=== PATIENT | female | born 1965 | race Hispanic/Latino ===

== ENCOUNTER → 2024-02-12 12:53 | Outpatient (REF) | payer OTHER, SELFPAY | LOC: HWWDC 12:53 | PROVIDERS: ATTENDING PHYSICIAN Hospitalist | DX: Z12.31 Encounter for screening mammogram for malignant neoplasm of breast (principal) | CPT/HCPCS: 77063; 77067 ==

== ENCOUNTER 2024-03-05 | Emergency (ER) | payer OTHER, SELFPAY ==
[2024-03-05 00:07] VITALS: BP 104/71
[2024-03-05 00:33] VITALS: BP 99/45
[2024-03-05 00:45] VITALS: BMI 32.9
[2024-03-05 00:54] LABS: % Basophils 0.9 % (0-2); % Eosinophils 12.7 % (0-6); % Immature Granulocytes 0.3 % (0-0.5); % Monocytes 13.4 % (1.7-9.3); % Neutrophils 45.7 % (42.2-75.2); Absolute Basophils 0.1 10^3/uL (0-0.2); Absolute Lymphocytes 2.1 10^3/uL (1.2-3.4); Absolute Neutrophils 3.6 10^3/uL (1.4-6.5); Hematocrit 34.9 % (37.0-47.0); Hemoglobin 11.9 g/dL (12.0-16.0); Mean Corp Hgb Conc. 34.1 g/dL (33.0-37.0); Mean Corpuscular Hgb 29.9 pg (27.0-31.0); Mean Corpuscular Volume 87.7 fL (81.0-99.0); Mean Platelet Volume 10.1 fL (7.4-10.4); Nucleated Red Blood Cells % 0 %; Platelet Count 238 10^3/uL (130-400); Red Blood Cell Count 3.98 10^6/uL (4.20-5.40); Red Cell Dist. Width 13.6 % (11.5-14.5); White Blood Cell Count 7.8 10^3/uL (4.8-10.8)
[2024-03-05 01:00] VITALS: BP 97/52
[2024-03-05 01:06] LABS: ALT (SGPT) 49 U/L (0-35); AST (SGOT) 58 U/L (14-36); Albumin 3.7 g/dl (3.5-5.0); Alkaline Phosphatase 193 U/L (38-126); Blood Urea Nitrogen 13 mg/dl (7-17); Carbon Dioxide 29 mmol/L (22-30); Chloride 103 mmol/L (98-107); Estimated Creatinine Clearance 63 ml/min; Glucose 91 mg/dl (70-99); Potassium 4.3 mmol/L (3.5-5.1); Sodium 139 mmol/L (135-145); Total Bilirubin 0.5 mg/dl (0.2-1.3); Total Protein 7.4 g/dl (6.3-8.2); eGFR > 60.00
[2024-03-05 01:46] LABS: Urine Albumin Negative (Neg - Trace); Urine Bilirubin Negative (Negative); Urine Character Clear (Clear); Urine Color Yellow; Urine Glucose Negative (Negative); Urine Ketone Negative (Negative); Urine Leukocyte Trace (Negative); Urine Nitrite Negative (Negative); Urine Occult Blood Negative (Negative); Urine Specific Gravity 1.005 (<1.030); Urine Urobilinogen Negative (Neg - 1+)
[2024-03-05 01:54] LABS: COVID-19 Antigen Negative (Negative)
--- NOTE | 2024-03-05 01:59 | ED.GENMED ---
History of Present Illness
General
Chief Complaint: Headache
Source: patient
Exam Limitations: none
Time Seen by Provider: 03/05/24 01:32
History of Present Illness
History of Present Illness:
This is a 58 year old female that comes in with c/o chest pain and headache. States that she did not feel well all day. 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 State that she came home and they had dinner. State that
she had a glass of wine and was going to watch a movie. States that she started with SOB and a headache that her eyes were bothering her. States that she has chest pain and started with a cough. states that her Pulse ox on the left was in
the 80's and the right was 90. States that he also took her BP and in the left it was 96/64 with pulse of 59 and the right was 93/73 with pulse of 77. States that they called the PCP and they were told to come to the ER as the PCP was concerned
about a PE. States that he Pulse ox then did come up to 95% in both arms. States that she has head pressure. Denies any fever, chills, chest pain now, SOB, abd pain, nausea, vomiting, diarrhea, dizziness, urinary burning.
Past History
Past History
ED Past Medical History: Fibromyalgia, Hypothyroidism, Psychiatric (Depression) and Other (Lupus, Elevated liver enzymes, Back pain, Paralysis left face, PNA, Cirrhosis of the liver,. Kidney issues, Rectal pain syndrome); Negative Asthma, HTN,
Hypercholesterolemia or NIDDM
ED Past Surgical History: Appendectomy, Cholecystectomy, and Gynecological (Ectopic )
Social History
Tobacco: Former smoker (Also vaping)
Alcohol: Occasional
Personal:
Living: with family
Employment: Employed
Family History
Family History: Other (Mother with pulmonary fibrosis and Chagas Disease)
Review of Systems
Review of Systems
All Other Systems: ROS reviewed and negative except as documented in HPI and ROS
Constitutional: Reports no symptoms; Denies fever or chills
EENT: Reports no symptoms
Respiratory: Reports cough and trouble breathing
Cardiac: Reports chest pain
ABD/GI: Reports no symptoms; Denies abdominal pain, nausea, vomiting or diarrhea
: Reports no symptoms; Denies dysuria, frequency or urgency
Musculoskeletal: Reports no symptoms
Skin: Reports no symptoms
Neurological: Reports headache; Denies dizzy
Psychiatric: Reports no symptoms
Phy Exam
General Physical Exam
General Presentation: no apparent distress
General age: appears stated age
General Skin: warm and dry
General Habitus: normal
General Mental: alert
General Hydration: dry mucous membranes
ENT Exam
ENT Exam: TM's normal, pharynx normal and neck supple
Eye Exam
Eye Exam: EOMI
Cardiovascular Exam
Cardiovascular Exam: regular rate/rhythm, no edema, no murmur and normal peripheral pulses
Pulmonary Exam
Pulmonary Exam: lungs clear, no respiratory distress, no rales, chest non tender, no crackles, no rhonchi, no wheezing and no cough
Gastrointestinal Exam
Gastrointestinal Exam: normal bowel sounds, soft, no organomegaly, no pulsatile mass, non distended and tender (Slight generalized tenderness only with palpation)
Musculoskeletal Exam
Musculoskeletal Exam: full ROM and no edema
Skin Exam
Skin Exam: normal color, warm/dry, no rash and no petechia
Psychiatric Exam
Psychiatric Exam: normal mood/affect
Course
Orders/Labs/Results
Orders:
Orders
03/05/24 00:10
ECG [Electrocardiogram (*1)] Urgent
Reason for Study: Chest Pain
EKG- Treatment ONCE
03/05/24 00:46
Complete Blood Count/With Diff Urgent
Comprehensive Metabolic Panel Urgent
03/05/24 01:33
Urinalysis Reflex To Culture Urgent
Date Specimen was Collected: 03/05/24
Time Specimen was Collected: 01:31
Urine Microscopic Reflex Cult Urgent
03/05/24 01:36
COVID-19 Antigen Urgent
Source: Nasal Swab
03/05/24 01:56
CT Head W/o Iv Contrast Urgent
Comment:
Reason For Exam: Headache,
0.9% Sodium Chloride 1000 ml [Nss] 1,000 ml IV BOLUS
Acetaminophen [Tylenol] 1,000 mg PO NOW STA
Ketorolac [Toradol] 30 mg IV NOW STA
03/05/24 01:59
Dexamethasone Sod Phosphate [Decadron] 20 mg IV NOW STA
03/05/24 02:09
CR Chest - 2 Views Urgent
Comment:
Reason For Exam: SOB, chest pain
03/05/24 02:12
D-Dimer Urgent
Troponin I Urgent
Abnormal Lab Results
03/05/24 03/05/24
00:46 01:33
RBC 3.98 L 10^6/uL
(4.20-5.40)
Hgb 11.9 L g/dL
(12.0-16.0)
Hct 34.9 L %
(37.0-47.0)
Absolute Monos (auto) 1.0 H 10^3/uL
(0.1-0.6)
Absolute Eos (auto) 1.0 H 10^3/uL
(0-0.7)
Monocytes % 13.4 H %
(1.7-9.3)
Eosinophils % 12.7 H %
(0-6)
AST 58 H U/L
(14-36)
ALT 49 H U/L
(0-35)
Alkaline Phosphatase 193 H U/L
(38-126)
Leukocyte Esterase Rfl Trace A
(Negative)
Urine Bacteria (Reflex) Few A
(Negative)
03/05/24 00:46
03/05/24 00:46
H/H slightly low. AST/ALT elevation (chronic), Alk phos elevation, Urine negative for infection. COVID negative. D-dimer 0.46, troponin <0.012
Vital Signs
Initial and Last Documented VS:
Initial Vital Signs
Temp Pulse Resp BP Pulse Ox
99.4 F 77 19 104/71 97
03/05/24 00:07 03/05/24 00:07 03/05/24 00:07 03/05/24 00:07 03/05/24 00:07
Last Documented Vital Signs
Temp Pulse Resp BP Pulse Ox
99.4 F 69 13 92/62 95
03/05/24 00:07 03/05/24 03:00 03/05/24 03:00 03/05/24 03:00 03/05/24 03:00
MDM/Problems Addressed
Differential Diagnosis Includes:
Anxiety, COVID, PE, Migraine, Fibromyalgia
MDM/Problems Addressed:
This is a 58 year old female that comes in with multiple complaints. States that she didn't feel well today and then tonight she started with SOB, cough and chest pain. Then she also has a headache and her Pulse ox dropped at home.
Will get labs, CT head, Give IV fluids and pain medication.
Back into see patient and . Explained that her blood work shows that her liver enzymes are mildly elevated. Her Urine is negative for infection. COVID is negative. D-dimer is negative and Troponin is normal. Feel that this is patient
Fibromyalgia pain. Patient to follow up with the Family doctor. Increase her water intake to 8-8oz glasses daily. Return with any concerns.
Chronic conditions affecting care: Other (Fibromyalgia)
Acute Exacerbation and/or Progression of Chronic Illness:
Fibromyalgia
*Radiology
Radiology exam reviewed: preliminary read by ED provider (Chest- negative for active disease. ) and radiology read reviewed (Head Night hawk-No evidence for acute intracranial process)
*Pulse Oximetry
Patient hypoxic: no
*EKG
Interpreted by ED Provider?: Yes
Heart Rate: 72
Rate: normal
Rhythm: sinus
[place]: normal axis
Interval: normal interval
QRS Pattern: normal QRS
Ischemia: no ischemia
*Marketing Research Coordinator Interpretation
Rate: Marketing Research Coordinator- N/A
*Critical Care Note
Total Time (30-74mins, 75-104mins- exclusive of procedures): Not Applicable
ED Attending Note
-
Portions of this chart may have been created with voice recognition software.� Occasional wrong word or��sound alike� substitutions may have occurred due to the inherent limitations of voice recognition software.
Discharge Plan
Departure
Patient Disposition: Home (Routine Discharge)
Date of Disposition: 03/05/24
Time of Disposition: 03:21
Patient with high blood pressure during this ER visit?: No
Condition: Good
Covid-19: Negative COVID-19
Discharge Problem:
Headache, Fibromyalgia
Instructions: Headache, Adult (DC), Fibromyalgia (DC)
Prescriptions:
No Action
gabapentin [Neurontin] 600 MG tablet
600 mg PO TID
zolpidem 10 MG tablet
10 mg PO HS
Patient Comments:
09/05/2023: last filled 08/14/23, 30 tabs for 30 days from [facility]
levothyroxine 125 mcg tablet
125 mcg PO DAILY
codeine sulfate 60 mg tablet
60 mg PO QID
Patient Comments:
09/05/2023: last filled 07/18/23, 120 tabs for 30 days from [facility]
cevimeline 30 mg capsule
30 mg PO TID
carboxymethylcellulose sodium 1 % Drops, Liquid Gel
1 drp BOTH EYES TID
amitriptyline 50 MG tablet
50 mg PO BID
hydroxychloroquine 200 MG tablet
200 mg PO BID
Paxlovid 300 mg (150 mg x 2)-100 mg tablets,dose pack
See Rx Instructions .ROUTE .COMPLEX Qty: 30 0RF
Rx Instructions:
take TWO 150 mg tablets of nirmatrelvir with ONE 100 mg tablet of ritonavir twice daily for 3 days.
(Take for 3 MORE DAYS AND THEN STOP)
Cepacol Sore Throat-Cough 5-7.5 mg lozenge
1 mauro PO Q4H PRN (Reason: sore throat) Qty: 16 1RF
Referrals:
Kam Pizarro MD [Family Provider] - Follow up in 2-3 days
Activity Restrictions/Additional Instructions:
As discussed, your blood work shows that your liver enzymes are mildly elevated. Your ECG is normal along with your Troponin. You are COVID negative. Chest x-ray is normal and D-dimer is negative. Please increase your water intake to 8-8oz glasses
daily. Follow up with the family doctor for recheck. IF YOU HAVE ANY OTHER CONCERNS PLEASE RETURN TO THE EMERGENCY ROOM.
Interventions
Interventions:
*Risk Screen - Suicide Last Done: 03/05/24 00:07
*General Assessment Last Done: 03/05/24 00:07
*Neglect/Abuse Screening Last Done: 03/05/24 00:07
*ED COVID-19 Vaccine History Last Done: 03/05/24 00:07
ED- Neurological Assessment Last Done: 03/05/24 00:45
Discharge Date and Time
Print Language: KAZAKH
[2024-03-05 02:00] VITALS: BP 103/52
[2024-03-05 02:22] LABS: Urine Bacteria Few (Negative); Urine Red Blood Cell 0-2 /HPF (0-2)
[2024-03-05] MEDS: DECADRON 20 MG IV (02:25)
[2024-03-05] MEDS: NSS 1000 IV (02:25)
[2024-03-05] MEDS: TORADOL 30 MG IV (02:25)
[2024-03-05] MEDS: TYLENOL 1000 MG PO (02:26)
[2024-03-05 02:33] LABS: D-Dimer 0.46 ug/mlFEU (0.00-0.50)
[2024-03-05 02:43] LABS: Troponin I < 0.012 ng/ml
[2024-03-05 03:00] VITALS: BP 92/62
== END 2024-03-05 03:37 | disposition home or self-care (01) ==
LOC: EMR
PROVIDERS: Clinical Nurse Specialist Family Health; EMERGENCY PHYSICIAN Emergency Medicine; FAMILY PHYSICIAN Hospitalist
DX: R51.9 Headache, unspecified (principal); M79.7 Fibromyalgia; Z87.891 Personal history of nicotine dependence
CPT/HCPCS: 99285; 96374; 96375; 96361; 70450; 71046; 80053; 81003; 81015; 84484; 85025; 85379; 87811; 93005

== ENCOUNTER → 2024-08-11 13:53 | Outpatient (REF) | payer OTHER, SELFPAY | LOC: PAVMRI 13:53 | PROVIDERS: ATTENDING PHYSICIAN Otolaryngology | DX: H90.42 Sensorineural hearing loss, unilateral, left ear, with unrestricted hearing on the contralateral side (principal) | CPT/HCPCS: 70553; A9575 ==

== ENCOUNTER → 2024-11-12 14:16 | Outpatient (REF) | payer OTHER, SELFPAY | LOC: HWRCS 14:16 | PROVIDERS: ATTENDING PHYSICIAN Hospitalist | DX: I35.0 Nonrheumatic aortic (valve) stenosis (principal) | CPT/HCPCS: 93306 ==

== ENCOUNTER → 2024-12-05 06:58 | Outpatient (REF) | payer OTHER, SELFPAY | LOC: MRI 06:58 | PROVIDERS: ATTENDING PHYSICIAN Psychiatry & Neurology Neurology; FAMILY PHYSICIAN Hospitalist | DX: M54.50 Low back pain, unspecified (principal); M54.17 Radiculopathy, lumbosacral region | CPT/HCPCS: 72148 ==

== ENCOUNTER → 2025-01-26 09:55 | Outpatient (REF) | payer OTHER, SELFPAY | LOC: MRI 09:55 | PROVIDERS: ATTENDING PHYSICIAN Internal Medicine Transplant Hepatology; FAMILY PHYSICIAN Hospitalist | DX: K74.3 Primary biliary cirrhosis (principal) | CPT/HCPCS: 74183; A9575 ==

== ENCOUNTER → 2025-04-08 09:30 | Outpatient (REF) | payer OTHER, SELFPAY | LOC: MRI 3T 09:30 | PROVIDERS: ATTENDING PHYSICIAN Ophthalmology; FAMILY PHYSICIAN Hospitalist | DX: H46.13 Retrobulbar neuritis, bilateral (principal) | CPT/HCPCS: 70540; 70551 ==

== ENCOUNTER 2025-04-26 03:24 | Observation (INO) | payer OTHER, SELFPAY ==
[2025-04-25 23:46] VITALS: BP 117/60
[2025-04-26] VITALS (12 sets, daily range): BP systolic 101–130; BP diastolic 48–67; PULSE 66–70; BMI 33.1; BMI 33.6
[2025-04-26 00:54] LABS: Hematocrit 35.5 % (37.0-47.0); Hemoglobin 11.7 g/dL (12.0-16.0); Mean Corp Hgb Conc. 33.0 g/dL (33.0-37.0); Mean Corpuscular Volume 92.4 fL (81.0-99.0); Nucleated Red Blood Cells % 0 %; Platelet Count 198 10^3/uL (130-400); Red Cell Dist. Width 13.2 % (11.5-14.5)
[2025-04-26 01:07] LABS: ALT (SGPT) 89 U/L (0-35); AST (SGOT) 47 U/L (14-36); Albumin 3.7 g/dl (3.5-5.0); Alkaline Phosphatase 188 U/L (38-126); Blood Urea Nitrogen 15 mg/dl (7-17); Calcium 9.1 mg/dl (8.4-10.2); Carbon Dioxide 27 mmol/L (22-30); Chloride 109 mmol/L (98-107); Estimated Creatinine Clearance 71 ml/min; Glucose 88 mg/dl (70-99); Lipase 40 U/L (23-300); Potassium 3.7 mmol/L (3.5-5.1); Sodium 141 mmol/L (135-145); Total Protein 7.3 g/dl (6.3-8.2); eGFR > 60.00
[2025-04-26 01:21] LABS: Troponin I < 0.012 ng/ml
[2025-04-26] MEDS: NSS 1000 IV (01:23)
[2025-04-26] MEDS: DILAUDID 0.5 MG IV (01:23)
--- NOTE | 2025-04-26 01:42 | ED.GENMED ---
History of Present Illness
General
Chief Complaint: Rectal Bleeding
Source: patient, spouse and previous hospital records
Exam Limitations: none
Time Seen by Provider: 04/26/25 00:06
Nursing documentation reviewed up to this point in time: agreed with
History of Present Illness
History of Present Illness:
The patient is a 59-year-old female with a complex medical history that includes systemic lupus erythematosus, Sj�grens syndrome, fibromyalgia�chronic pain syndrome�narcotic dependent, hypothyroidism, primary biliary cirrhosis, anemia, depression,
and previous gastrointestinal procedures. She underwent an ERCP and liver biopsy performed two days ago (Saturday) at [place]. The patient reported two episodes of rectal bleeding today, occurring at approximately 10 PM and 11 PM. Earlier in the
day, she passed a small, brown stool but did not experience any bleeding at that time but shortly after passing this small brown bowel movement she passed out falling off of the toilet, striking her forehead against the tub. No recurrent episodes
of syncope. She denies chest pain or palpitations, no shortness of breath. No headache, no neck or back pain. She denies any history of similar gastrointestinal bleeding episodes or black stools in the past.
The patient reports localized abdominal pain, primarily in the upper region since the procedure on Saturday. She denies experiencing nausea but has noticed increased bowel noises and discomfort. Her appetite remains intact, and she has been consuming
meals regularly. A nurse from [place] advised that in the case of any bleeding following the liver biopsy, medical evaluation should be sought promptly. No history of bleeding disorder nor prior history of GI bleeding.
She has been following with her chemical process engineer, Dr. Botello. She had been maintained on Plaquenil for lupus but this was discontinued approximately a month ago and patient reports that her chemical process engineer currently is questioning the diagnosis of
lupus. She also follows with crisis therapist and airbrush artist technical at [place] as well as following with GI locally, Dr. Blanco. Reports colonoscopy 3 years ago.
She takes no anticoagulants.
Past History
Past History
ED Past Medical History: Fibromyalgia, GERD, Hypothyroidism, Psychiatric (Depression), Other (Lupus, Elevated liver enzymes, Back pain, Paralysis left face, PNA, Cirrhosis of the liver,. Kidney issues, Rectal pain syndrome, fibromyalgia, chronic
pain syndrome-narcotic dependent.) and Other (Primary biliary cirrhosis); Negative Asthma, HTN, Hypercholesterolemia or NIDDM
ED Past Surgical History: Appendectomy, Cholecystectomy, and Gynecological (Ectopic )
Social History
Tobacco: Former smoker (Also vaping)
Alcohol: None
Personal:
Living: with family
Employment: Employed
Family History
Family History: Other (Mother with pulmonary fibrosis and Chagas Disease)
Phy Exam
Physical Exam
Physical Exam:
GENERAL: 59-year-old woman appears her stated age, awake and alert, pleasant, appears mildly uncomfortable but easily communicative. Hemodynamically stable. Afebrile. is accompanying.
EYE: pupils equal and reactive. anicteric. The head is normocephalic, atraumatic.
NECK: Supple, nontender, no meningismus, no significant adenopathy.
ENT: posterior pharynx is clear, oral mucosa is moist. No rhinorrhea.
CARDIAC: Regular rate and rhythm. no murmur.
LUNGS: Clear breath sounds bilaterally, no acute respiratory distress, no wheezes/rales/rhonchi
ABDOMEN: Rotund, soft, nondistended, moderate generalized tenderness to the mid to upper abdomen, no r/g, no cvat. Mildly hyperactive bowel sounds. Rectal exam reveals no stool per vault, no gross blood per rectal exam but is heme positive.
NEUROLOGICAL: Alert and oriented x3, no focal neuro deficits. Gait is steady.
SKIN: Warm and dry, normal color, skin intact. No rash.
MUSCULOSKELETAL: No C/C/E. peripheral pulses are full and equal b/l. No palpable tenderness.
PSYCH: Normal and appropriate interaction.
Course
Orders/Labs/Results
Orders:
Orders
04/26/25 00:36
Electrocardiogram (*1) Urgent
Reason for Study: Syncope
EKG- Treatment ONCE
04/26/25 00:44
Type+Screen Urgent
Complete Blood Count/With Diff Urgent
Comprehensive Metabolic Panel Urgent
Lipase Urgent
Troponin I Urgent
04/26/25 01:06
0.9% Sodium Chloride 1000 ml [Nss] 1,000 ml IV BOLUS
HYDROmorphone [Dilaudid] 0.5 mg IV NOW STA
04/26/25 02:01
CT Abd/pelvis Angio W/wo Iv Urgent
Comment:
Reason For Exam: acute rectal bleeding. ERCP-liver bx 04/24
04/26/25 03:14
Admit/Transfer Patient As Directed
Co-Sign Provider:
Level of Care: Observation services
Assign to:: Telemetry
Physician / Group: Anjel
Diagnosis: Syncope, Rectal Bleeding
Reason for Telemetry: Syncope
Date to Stop Telemetry: 04/28/25
Time to Stop Telemetry: 11:00
PRN Pain Medication Management As Directed
May give lesser potent ordered pain med per pt: Yes
preference::
Protocol:: Medication orders for pain may be administered in a
manner that supports deferring to patient preference
when the pt is:
- Requesting an ordered lesser potent pain medication.
Least to most potent pain medications are defined
as: acetaminophen < NSAID < tramadol < opioids
(morphine, oxycodone, hydromorphone).
- Requesting a lesser dose of the same medication IF
ORDERED.
- Requesting a less intrusive route of administration
if both routes are prescribed by the provider (PO <
IV).
04/26/25 03:15
Code Status As Directed
Resuscitation Status: Full Code
04/28/25 11:00
DC Protocol for Telemetry ONCE
Abnormal Lab Results
04/26/25
00:44
RBC 3.84 L 10^6/uL
(4.20-5.40)
Hgb 11.7 L g/dL
(12.0-16.0)
Hct 35.5 L %
(37.0-47.0)
Absolute Monos (auto) 0.8 H 10^3/uL
(0.1-0.6)
Chloride 109 H mmol/L
(98-107)
AST 47 H U/L
(14-36)
ALT 89 H U/L
(0-35)
Alkaline Phosphatase 188 H U/L
(38-126)
04/26/25 00:44
04/26/25 00:44
Vital Signs
Initial and Last Documented VS:
Initial Vital Signs
Temp Pulse Resp BP Pulse Ox
97.9 F 73 20 117/60 99
04/25/25 23:46 04/25/25 23:46 04/25/25 23:46 04/25/25 23:46 04/25/25 23:46
Last Documented Vital Signs
Temp Pulse Resp BP Pulse Ox
97.9 F 74 10 116/54 100
04/25/25 23:46 04/26/25 01:45 04/26/25 01:45 04/26/25 01:01 04/26/25 01:57
MDM/Problems Addressed
Differential Diagnosis Includes:
The Differential Diagnosis includes, in no particular order and is not limited to:
- Gastrointestinal bleeding secondary to post-procedural complications
- Peptic ulcer disease
- Diverticular bleeding
- Hemorrhoids
- Colorectal neoplasm
- Angiodysplasia
- Inflammatory bowel disease
- Upper gastrointestinal bleeding
- Anticoagulation-related bleeding
- Deanne-Barron tear
MDM/Problems Addressed:
Acute:
- Rectal bleeding following ERCP and liver biopsy
- Syncope episode
Chronic:
- Systemic lupus erythematosus
- Sj�grens syndrome
- Fibromyalgia
- Chronic pain syndrome
- Hypothyroidism
- Primary biliary cirrhosis
- Anemia
- Depression
The shows me pictures of bright red blood in the bottom of the toilet, approximately 1/4-1/2 cupful. 2 episodes of similar rectal bleeding tonight.
Concern for GI bleeding related to recent liver biopsy/ERCP versus lower GI bleeding source.
She did suffer syncopal event earlier in the day, at that time not accompanied with visible GI bleeding.
No traumatic findings on exam, no evidence of head injury, neurologically stable, denies headache. Takes no anticoagulants. Thus at this point no indication for CT of the head.
Will check labs, type and screen.
color television console monitor
Will initiate IV fluids.
Due to acute GI bleeding, at risk for recurrent or significant bleeding, patient will require acute hospitalization for further evaluation and diagnostic studies.
*Radiology
Radiology exam reviewed: radiology read reviewed
*Pulse Oximetry
SaO2: 100
Oxygen Mode of Delivery: Room air
Patient hypoxic: no
*EKG
Interpreted by ED Provider?: Yes
Interpretation: normal
Comparison EKG: no changes (Unchanged from previous February 2024)
Rate: normal
Rhythm: sinus
[place]: normal axis
Interval: normal interval
QRS Pattern: normal QRS
Ischemia: no ischemia
*Assistant Farm Operations Manager Interpretation
Rate: normal
Interpretation: normal
Rhythm: sinus
*Critical Care Note
Total Time (30-74mins, 75-104mins- exclusive of procedures): Not Applicable
Update Note
Update Note:
Labs show very mild but stable anemia compared to previous.
Elevated LFTs, similar to previous.
Normal lipase.
Troponin is negative.
ED Attending Note
-
Portions of this chart may have been created with voice recognition software.� Occasional wrong word or��sound alike� substitutions may have occurred due to the inherent limitations of voice recognition software.
Discharge Plan
Departure
Patient Disposition: Admit
Date of Disposition: 04/26/25
Time of Disposition: 03:27
Admit to: Telemetry
Admit to doctor: Anjel
Presentation/result/management discussed w/ accepting MD/DO: Hospitalist
Condition: Fair
Discharge Problem:
Acute gastrointestinal bleeding, Episode of syncope
Interventions
Interventions:
*Risk Screen - Suicide Last Done: 04/25/25 23:46
*General Assessment Last Done: 04/25/25 23:46
*Neglect/Abuse Screening Last Done: 04/25/25 23:46
*ED- Fall Risk Assessment Last Done: 04/25/25 23:46
*ED COVID-19 Vaccine History Last Done: 04/25/25 23:46
EE-Otvdsg-Hbtglbgqlo Assessment Last Done: 04/26/25 02:06
ED- Cardiac Assessment Last Done: 04/26/25 02:06
ED- Pulmonary Assessment Last Done: 04/26/25 02:06
--- NOTE | 2025-04-26 03:18 | HPS.HSE ---
Family Physician
-
Family Physician: Kam Pizarro MD
Chief Complaint
-
Abd Pain, Rectal Bleeding, Syncope
History of Present Illness
Patient is a 59y F with PMH significant for fibromyalgia, primary biliary cirrhosis and pelvic floor dysfunction who presents to ED complaining of abdominal pain, syncope and rectal bleeding. History obtained from patient and her at the
bedside. Patient underwent ERCP with liver biopsy at [place] on Monday 04/23. She states that she has developed increased abdominal bloating, distention and discomfort since that time. No N/V. No fevers / chills.
Today patient was having severe abdominal discomfort / bloating sensations. She notes that she became cold, clammy and diaphoretic and had an episode of syncope in the bathroom. She struck her head on the side of the bathtub.
She chewed two Gas-X tabs and her symptoms improved.
Later in the evening, patient had the urge to move her bowels and noted bright red blood in the toilet. has photos. Two episodes of 'cloud' of bright red blood at the bottom of the toilet. No stool seen.
Patient denies straining or constipation - but does report history of pelvic floor dysfunction with pencil-thin stools and chronic rectal pain with defecation. No prior history of BRB.
In the ED, patient is resting comfortably in no acute distress.
Medical History
Past Medical History
Past Medical History: Reports Other
Additional Past Medical History:
Hypothyroidism
Primary Biliary Cirrhosis
Fibromyalgia
Sjogren's Syndrome
Anxiety / Depression
Pelvic Floor Dysfunction
Chronic Pain Syndrome
Chronic Opioid Dependence
Past Surgical History: Reports Other
Additional Past Surgical History:
Appendectomy
Ectopic
x 2
Cholecystectomy
Liver Biopsy
Social History
Tobacco: Former Smoker
Alcohol: None
Drug: None
Personal:
Living: With Family
Family History
Family History: Not pertinent
Allergies / Home Medications
Allergies reflects when Allergies were last updated in [facility].
Home Medications with original date entered in [facility]
Allergy/Medication List:
Allergies
Allergy/AdvReac Type Severity Reaction Status Date / Time
vancomycin Allergy Unknown renal Verified 04/25/25 23:54
failure
amoxicillin Allergy Hives Verified 04/25/25 23:54
azithromycin Allergy Swelling Verified 04/25/25 23:54
probiotics Allergy Swelling Uncoded 04/25/25 23:54
Home Medications
gabapentin 600 mg tablet (Neurontin) 600 mg PO QID Neurological Condition 12/10/13
zolpidem 10 mg tablet 10 mg PO HS Sleep 05/31/16
amitriptyline 50 mg tablet 50 mg PO BID Mental Health/Anxiety 09/05/23
carboxymethylcellulose sodium 1 % eye liquid gel drops 1 drp BOTH EYES TID DRY EYES 09/05/23
cevimeline 30 mg capsule 30 mg PO TID XEROSTOMIA 09/05/23
levothyroxine 125 mcg tablet 125 mcg PO DAILY Thyroid 09/05/23
oxycodone 5 mg tablet 5 mg PO TID PRN pain 04/26/25
Review of Systems
-
History Source: Patient
A 12 point ROS was completed and negative except as noted: Yes
Constitutional: Reports Fatigue; Denies Fever or Chills
Respiratory: Denies Cough or Trouble Breathing
Cardiac: Denies Chest Pain or Palpitations
Abdomen/GI: Reports Abdominal Pain and Bloody Stools; Denies Nausea, Vomiting, Diarrhea or Constipated
: Denies Dysuria, Frequency or Flank Pain
Musculoskeletal: Denies Joint Pain or Edema
Neurological: Reports Headache; Denies Dizzy
Psych: Denies Depression or Anxiety
Physical Exam
Vital Signs
Vital Signs
Temp Pulse Resp BP Pulse Ox
97.9 F 74 10 116/54 100
04/25/25 23:46 09/08/25 01:45 04/26/25 01:45 04/26/25 01:01 04/26/25 01:57
Physical Exam
General: Other (59y F in no acute distress.)
HEENT: Moist mucous membranes and PERRLA
Respiratory: Clear; No Wheezes, Rales or Rhonchi
Cardiac: S1/S2 and Regular Rhythm; No Murmur
GI: Soft, Non Tender, Non Distended and Normal Bowel Sounds
Musculoskeletal: No Clubbing, No Cyanosis and No Edema
Neuro: AO x 3
Laboratory Results
-
04/26/25 00:44
04/26/25 00:44
Laboratory Results
Total Bilirubin 0.5 mg/dl (0.2-1.3) 04/26/25 00:44
AST 47 U/L (14-36) H 04/26/25 00:44
ALT 89 U/L (0-35) H 04/26/25 00:44
Alkaline Phosphatase 188 U/L (38-126) H 04/26/25 00:44
Troponin I < 0.012 ng/ml 04/26/25 00:44
Lipase 40 U/L (23-300) 04/26/25 00:44
Impression/Plan
-
A/P: Patient is a 59y F with PMH significant for PBC, fibromyalgia and chronic pain syndrome who presents to ED complaining of abdominal pain, BRBPR and syncope.
Syncope
- Observe overnight for further evaluation and treatment.
- Very likely vasovagal syncope given preceding abdominal bloating / discomfort (see below).
- Monitor on tele overnight for any arrhythmia.
- IVF support overnight.
- Follow for any new / recurrent symptoms.
Abdominal Pain
Rectal Bleeding
- Patient describes 'gas pains' / bloating and improved with Gas-X at home.
- Monitor for recurrent symptoms. Supportive care.
- Lipase normal s/p recent ERCP.
- Doubt that rectal bleeding is related to recent UGI procedure / biopsy.
- Follow H&H, vitals, etc.
- Monitor for any further bleeding.
- GI evaluation in the AM for additional recommendations.
Fibromyalgia
Chronic Pain Syndrome
Chronic Opioid Dependence
- Stable. Continue usual med regimen without changes.
Sjogren's Syndrome
Primary Biliary Cirrhosis
- Stable. Continue supportive care for Sjogren's / [place] symptoms.
- Follow-up results of liver biopsy when available. (Dr. Puentes at [place])
Hypothyroidism
- Continue T4 supplementation.
Pelvic Floor Dysfunction
- Patient denies constipation but reports chronic pain with defecation.
- ? any benefit to bowel regimen.
- Follow-up with colorectal surgery as planned. Botox being considered.
DVT Prophylaxis: SCDs
Code Status: Full
[2025-04-26] MEDS: LR 1000 IV ×2 (05:09→17:22)
--- NOTE | 2025-04-26 06:00 | PTCARENOTE ---
Upon arrival to floor was concerned about ambulating, but was well able to stand and transfer to bed. Pt instructed not to get OOB unassisted and that BSC would be used initially. When needed to void, pt insisted on going to BR. Denied
lightheadedness. Bed alarm applied to bed. No stools since arrival to floor.
[2025-04-26] MEDS: SYNTHROID 125 MCG PO (06:42)
--- NOTE | 2025-04-26 06:54 | CON.GI ---
Addendum entered and electronically signed by Amanda Key DO 04/26/25 17:33:
Patient seen and examined independently of NICK. I agree with her note with my additions below
Kate is a 59-year-old female with PBC intolerant of ursodiol, no known cirrhosis, Sjogren's, pelvic floor dysfunction, levator ani spasm followed by Dr. Kirkpatrick, fibromyalgia on chronic opiates, prior cholecystectomy and diffuse biliary ductal
dilatation which just underwent an EUS at [facility] on 04/23/2025 not showing any pathology. She comes in based on the day after her procedure she was trying to have bowel movements which normally takes her about 30 minutes to have small soft stools
without the help of laxatives and she syncopized. She felt bloated had chills diffuse abdominal discomfort then had small-volume red blood which prompted admission since she was told if she had any bleeding to go to emergency room. She had a
recent EUS and ERCP with liver biopsy at [facility] on 04/23/2025. It was uncomplicated and she had no significant symptoms postop. She had no procedure done during the ERCP except the liver biopsy. Since being here she has had a few episodes today
of left blood but still loose mucoid yellow stools. she has no leukocytosis, her hemoglobin has been relatively stable around 11-12. Her liver enzymes are at baseline. Lipase was normal. Her abdominal discomfort is diffuse and tender throughout.
No guarding. In the emergency room she underwent a CT angio which showed no active bleeding. Questionable descending thickening however no oral contrast.
# Small volume mucoid stools with red blood with abdominal discomfort/bloating
--No significant GI bleeding. I reviewed the pictures which show mucoid red
--Concern for infectious versus stercoral colitis however not overly constipated and patient has been having her normal bowel movements
--On rare occasion she will use MiraLAX with last dose about 3 weeks ago
--Will check stool studies
--If patient does not improve would consider imaging with oral contrast versus flexible sigmoidoscopy
--Patient on clear liquids and does not want to advance
--Discussed with at bedside. Reviewed her EUS/ERCP. Reviewed pictures of her stools at home. Reviewed her CT scan myself
Original Note:
Consultation
-
Date/Time Consultation Requested: 04/26/25449
Date/Time Consultation Performed: 04/26/25 0815
Requesting Provider: Kashif Hobbs DO
Performing Provider: NICK Daley, Amanda Key DO
Reason for Consultation: rectal bleeding/abdominal pain
Medical History
Chief Complaint / HPI
Chief Complaint: rectal bleeding
History of Present Illness:
Pt is a 59yo with hx primary biliary cirrhosis intolerant of Turner, fatty liver, lupus, sjogrens, anemia, dry eyes, pelvic floor dysfunction, Levitor Ani-anal spasms with colon rectal following, constipation, colon polyps, chronic pain with opioid
use fibromyalgia, GERD, hypothyroidism, depression, prior liver bx, appe, alisha, C section with onset of abdominal pain with chills on 04/24 then syncope and fall while in bathroom and rectal bleeding with small volume red blood on 04/25 prompting
admission. Pt had recent ERCP and liver biopsy at [facility] on 04/23 and developed increased abdominal bloating, distention and pain. On admission noted with stable hbg 11.7, LFT elevation with hx prior elevation with bili 0.5, AST 47, ALT 89, alk
phos 188 and normal lipase. CTA A/p completed in ER-- no active GI hemorrhage, no hepatic leisons moderate intra and extrahepatic biliary dilatation, no filling defect, no panc lesion, changes of fibrosis lung bases. Colonoscopy in 2021, [facility]
Follow up of adenomatous polyps, sigmoid tubular adenoma removed, nodular mucosa in the rectum, biopsies do not show any active inflammation. Repeat in 5 years�.
In review with patient and family patient continues this am with multiple complaints. She has severe headache pain, concern for HTN and continued GI issues with abdominal pain, and constant rectal pain issues that have been ongoing. She
admits to some nausea without vomiting. She states pain in mid abdomen with some pain into back rate 10/10 along with 10/10 headache. She feels worse with Dilaudid use and current getting scheduled Oxycodone dosing. She did take some gas X
without improvement. As far as bleeding she was noted with 2 episode of bright red blood 10 and 11 Pm on 04/25 wiith about 30ml of red blood that was in bottom of bowl with out recurrent episode overnight. She continues to complain of rectal pain.
She was due to have botox injection with Dr. Kirkpatrick but having issues with insurance coverage. She admits to pencil thin stools at time but denies diarrhea or constiaption. no black stools.
04/23/25=[facility] - EGD- normal esophagus, mild erythema in antrum bx taken, normal duodenum
EUS- extrahepatic duct dilated to 15mm no stones or debris likely related to alisha, pancreas no mass or cyst pancreas non dilated normal parechyma liver mildly hyperechoic,
FNA guided liver biopsy
Past Medical History
Past Medical History: Fibromyalgia, GERD, Hypothyroidism, Psychiatric (depression, suicide attempts) and Other (primary biliary cirrhosis intolerant of Turner, fatty liver, lupus, sjogrens, anemia, dry eyes, pelvic floor dysfunction, constipation,
colon polyps, chronic pain with opioid use, anal spasm - levitor ani )
Past Surgical History: Appendectomy, Cholecystectomy, , Gynecological (ectopic ) and Other (liver biopsy, oral implant s)
Social History
Tobacco: Non-Smoker
Alcohol: None
Drug: None
Personal:
Living: With Family
Employment: Employed
Family History
Family History: Reviewed & Not Pertinent
Allergies / Home Medications
Allergy/AdvReac Type Severity Reaction Status Date / Time
vancomycin Allergy Unknown renal Verified 04/25/25 23:54
failure
amoxicillin Allergy Hives Verified 04/25/25 23:54
azithromycin Allergy Swelling Verified 04/25/25 23:54
probiotics Allergy Swelling Uncoded 04/25/25 23:54
�Medication �Instructions �Recorded
gabapentin 600 mg tablet 600 mg PO QID Neurological 12/10/13
(Neurontin) Condition
zolpidem 10 mg tablet 10 mg PO HS Sleep 05/31/16
amitriptyline 50 mg tablet 50 mg PO BID Mental Health/Anxiety 09/05/23
carboxymethylcellulose sodium 1 % 1 drp BOTH EYES TID DRY EYES 09/05/23
eye liquid gel drops
cevimeline 30 mg capsule 30 mg PO TID XEROSTOMIA 09/05/23
levothyroxine 125 mcg tablet 125 mcg PO DAILY Thyroid 09/05/23
oxycodone 5 mg tablet 5 mg PO TID PRN pain 04/26/25
Review of Systems
-
History Source: Patient and Family
Constitutional: Reports Chills (on 04/26)
EENT: Reports No Symptoms
Respiratory: Reports No Symptoms
Abdomen/GI: Reports Abdominal Pain, Nausea, Bloody Stools and Other (chronic rectal pain )
: Reports No Symptoms
Musculoskeletal: Reports Other (chronic pain with fibromyalgia )
Skin: Reports No Symptoms
Neurological: Reports Headache and Weakness
Endocrine: Reports No Symptoms
Hematologic/Lymphatic: Reports Bleeding
Vital Signs
Temp Pulse Resp BP Pulse Ox
98.2 F 70 18 127/62 98
04/26/25 04:47 04/26/25 04:47 04/26/25 04:47 04/26/25 04:47 04/26/25 06:12
Physical Exam
Exam
General: Other (distressed with multiple complaints with headache, abdominal pain fibromyalgia pain)
HEENT: Normocephalic and Anicteric
Respiratory: Clear
Cardiac: Regular Rhythm
GI: Soft, Tender (diffuse) and Distended (minimal )
Rectal: Other (per ER no stool in vault no gross blood, pt declined repeat with severe pain with exams )
Musculoskeletal: No Clubbing and No Cyanosis
Skin: Warm and Dry
Neuro: Awake, Alert and Other (anxious with multiple issues )
Psych: Agitated
Results
WBC 10.2 10^3/uL (4.8-10.8) 04/26/25 00:44
Hgb Cancelled 04/26/25 20:49
Hct Cancelled 04/26/25 20:49
MCV 92.4 fL (81.0-99.0) 04/26/25 00:44
Plt Count 198 10^3/uL (130-400) 04/26/25 00:44
Absolute Neuts (auto) 5.7 10^3/uL (1.4-6.5) 04/26/25 00:44
Sodium 141 mmol/L (135-145) 04/26/25 00:44
Potassium 3.7 mmol/L (3.5-5.1) 04/26/25 00:44
Chloride 109 mmol/L (98-107) H 04/26/25 00:44
Carbon Dioxide 27 mmol/L (22-30) 04/26/25 00:44
BUN 15 mg/dl (7-17) 04/26/25 00:44
Creatinine 0.8 mg/dL (0.6-1.0) 04/26/25 00:44
Calcium 9.1 mg/dl (8.4-10.2) 04/26/25 00:44
Total Bilirubin 0.5 mg/dl (0.2-1.3) 04/26/25 00:44
AST 47 U/L (14-36) H 04/26/25 00:44
ALT 89 U/L (0-35) H 04/26/25 00:44
Alkaline Phosphatase 188 U/L (38-126) H 04/26/25 00:44
Lipase 40 U/L (23-300) 04/26/25 00:44
Diagnostic Image Results:
04/26/25 CTA A/p completed in ER-- no active GI hemorrhage, no hepatic leisons moderate intra and extrahepatic biliary dilatation, no filling defect, no panc lesion, changes of fibrosis lung bases.
01/26/25 MRI with and without abdomen
1. SEVERE INTRAHEPATIC and EXTRAHEPATIC BILIARY DILATATION which has increased since 09/28/2019 and could be secondary to a distal common bile duct stricture.
2. Previous cholecystectomy.
3. Mild javier hepatis and portacaval lymphadenopathy.
4. Large amount of fecal material in the proximal colon suggesting constipation.
5. Severe inflammatory interstitial pneumonitis in the lower lungs.
Colonoscopy in 2021, Follow up of adenomatous polyps, sigmoid tubular adenoma removed, nodular mucosa in the rectum, biopsies do not show any active inflammation. Repeat in 5 years�
Liver biopsy 07/05/2020-liver parenchyma with interface hepatitis, lymphocytic cholangitis and a single nonnecrotizing granuloma. Mild steatosis. Fibrous portal expansion. GMS and AFB stains are negative for fungal elements and Mycobacterium. Given
the histologic findings and positive AMA, this is compatible with PBC.
Liver Biopsy 03/16/13- benign liver parenchyma with no diagnostic change. A special stain is negative for hepatocellular iron. No evidence of fibrosis or cirrhosis seen. Focal slight fatty change noted.
Colonoscopy 08/29/2020- Good prep. Complete to cecum. Localized area of thickened mucosa adjacent to scarring from prior polypectomy in the proximal ascending colon. Biopsied. 2 mm polyp in sigmoid colon. Path-hyperplastic.
Colonoscopy 09/17/2019-fair prep. Complete study- Cecum intubated. Dr. Mitchell. Multiple Colon polyps.
MRI 09/28/2019- CBD-8 mm, no IHD dilatation. s/p cholecystectomy. Liver upper limits of normal size without any focal masses. Normal Spleen.
FibroScan 09/15/2019> 3.5kPa, with an IQR of 6%, correlates to a METAVIR fibrosis score of F0 to F1
Labs
09/12/2019: Iron saturation 39%, Ceruloplasmin 30.1, IgM-129, GGT-117, Ferritin-108
HBsAb (-), HBsAg )-), AMA (+, 111.7). HBcAb (-), HAV Ab (+), BRIANNA positive, double-stranded DNA-10, Celiac panel-negative
Assessment / Plan
-
Pt is a 59yo with hx primary biliary cirrhosis intolerant of Turner, fatty liver, lupus, Sjogren's, anemia, dry eyes, pelvic floor dysfunction, constipation, colon polyps, Levitor Ani-anal spasms with colorectal following, chronic pain with opioid
use fibromyalgia, GERD, hypothyroidism, depression, prior liver bx, appe, alisha, C section with onset of abdominal pain with syncope and rectal bleeding. Pt had recent ERCP and liver biopsy at [facility] on 04/23 and developed increased abdominal
bloating, distention and pain. On admission noted with stable hbg 11.7, LFT elevation with hx prior elevation with bili 0.5, AST 47, ALT 89, alk phos [address] A/p completed no active GI hemorrhage, no hepatic leisons moderate
intra and extrahepatic biliary dilatation, no filling defect, no panc lesion, changes of fibrosis lung bases. Colonoscopy in 2021, Follow up of adenomatous polyps, sigmoid tubular adenoma removed, nodular mucosa in the rectum, biopsies do not show
any active inflammation. Repeat in 5 years�
-rectal bleeding
-abdominal pain
-syncope prior to admission
-recent ERCP and liver biopsy at [facility] 04/23
-concern for Primary biliary cirrhosis with follow with Dr. Puentes at [place]
-headache
-worsening of chronic fibromyalgia pain with chronic opioid use
-anal spasm-Levitor Ani follow with Dr. Kirkpatrick
other medical problems:
-hx pelvic floor dysfunction
-constipation
-colon polyp
-GERD
-hypothyroidism
-depression
-fatty liver
-lupus
-sjogrens
-anemia
-dry eyes
-anxiety/depression
-appe/alisha/
PLAN:
Etiology of rectal bleeding related to local source- hemorrhoids, diverticular vs other
per review of family pictures only small volume red blood in toilet x 2 and no further bleeding since 11 PM 04/25
CTA neg for active bleeding
cont to trend hbg and stool record-- I asked to to review with nursing for all stools
if continued bleeding consider flex-- pt admits to chronic rectal pain and increased pain with rectal exam with hx Levitor Ani
pt also with some abdominal pain and bloating s/p ERCP -- LFT with baseline chronic elevation
CT stable without pancreatitis with normal lipase on exam
cont pain control per hospitalist with chronic narcotic use
OP follow with Dr. Puentes at [facility], Dr. Blanco and Dr. Kirkpatrick -- has also had pelvic floor PT completed and evaluation with Dr. Quigley
family updated on bedside
reviewed with nursing staff
-
-
Thank you for consultation and allowing me to participate in the patient's care. Please call the traffic division commanding officer GI physician during the after hours with any questions or concerns.
[2025-04-26] MEDS: ROXICODONE 5 MG PO ×2 (08:27→20:01)
[2025-04-26] MEDS: ELAVIL 50 MG PO ×2 (08:28→20:01)
[2025-04-26] MEDS: REFRESH CELLUVISC GEL 1 DROPS BOTH EYES ×3 (08:28→21:37)
[2025-04-26] MEDS: NON-FORMULARY ITEM 30 MG PO ×3 (08:29→21:38)
[2025-04-26] MEDS: NSS (PRESERVATIVE FREE) 10 ML IV (08:29)
[2025-04-26] MEDS: PROTONIX IV 40 MG IV (08:29)
[2025-04-26] MEDS: NEURONTIN 600 MG PO ×4 (08:29→21:37)
--- NOTE | 2025-04-26 09:18 | W.PN.HOSP.TC ---
Today's Communication/Plan
-
GI eval
Assessment / Plan
Assessment / Plan
Physical exam:
General: Acutely ill
HEENT: Normocephalic, Atraumatic and Moist Mucous Membranes
Respiratory: Clear to Auscultation; Negative Wheezes, Rales or Rhonchi
Cardiac: Regular Rhythm and S1/S2
GI: Soft, tender and Nondistended
Musculoskeletal: No Clubbing, No Cyanosis and No Edema
Neuro: Lethargic but able to answer questions, Oriented, no neurological deficit
Psych: Calm
A/P:
Syncope
- Observe overnight for further evaluation and treatment.
- Very likely vasovagal syncope given preceding abdominal bloating / discomfort (see below).
- Monitor on tele overnight for any arrhythmia.
- IVF support overnight.
- Follow for any new / recurrent symptoms.
- PT eval
Abdominal Pain
Rectal Bleeding
- Patient describes 'gas pains' / bloating and improved with Gas-X at home.
- Monitor for recurrent symptoms. Supportive care.
- Lipase normal s/p recent ERCP.
- Doubt that rectal bleeding is related to recent UGI procedure / biopsy.
- Follow H&H, vitals, etc.
- Monitor for any further bleeding. Increased doses of home narcotics and reevaluate but might need to cut down again if not beneficial
- GI evaluation appreciated.
Fibromyalgia
Chronic Pain Syndrome
Chronic Opioid Dependence
- Stable. Continue usual med regimen without changes.
Sjogren's Syndrome
Primary Biliary Cirrhosis
- Stable. Continue supportive care for Sjogren's / Sicca symptoms.
- Follow-up results of liver biopsy when available. (Dr. Puentes at [facility])
Hypothyroidism
- Continue T4 supplementation.
Pelvic Floor Dysfunction
- Patient denies constipation but reports chronic pain with defecation.
- ? any benefit to bowel regimen.
- Follow-up with colorectal surgery as planned. Botox being considered.
DVT Prophylaxis: SCDs
Code Status: Full
Anticipated Discharge: 24 - 48 hours
Subjective/Interval History
-
Date of Service: April 26, 2025
Patient complains of ongoing abdominal pain. She reports rectal bleeding but had 1 episode of bowel movement without it today. Afebrile
Objective Data
-
Labs:
Laboratory Results
04/26/25 04/26/25 04/26/25
00:44 04:49 09:13
WBC 10.2 Pending
Hgb 11.7 L Cancelled Pending
Hct 35.5 L Cancelled Pending
Plt Count 198 Pending
Sodium 141 Pending
Potassium 3.7 Pending
Chloride 109 H Pending
Carbon Dioxide 27 Pending
BUN 15 Pending
Creatinine 0.8 Pending
Glucose 88 Pending
Calcium 9.1 Pending
Total Bilirubin 0.5
AST 47 H
ALT 89 H
Alkaline Phosphatase 188 H
04/26/25 04/26/25 04/26/25
12:49 14:00 20:49
WBC
Hgb Cancelled Pending Cancelled
Hct Cancelled Pending Cancelled
Plt Count
Sodium
Potassium
Chloride
Carbon Dioxide
BUN
Creatinine
Glucose
Calcium
Total Bilirubin
AST
ALT
Alkaline Phosphatase
04/26/25
22:00
WBC
Hgb Pending
Hct Pending
Plt Count
Sodium
Potassium
Chloride
Carbon Dioxide
BUN
Creatinine
Glucose
Calcium
Total Bilirubin
AST
ALT
Alkaline Phosphatase
Vital Signs:
Vital Signs
Temp Pulse Resp BP Pulse Ox
98 F 71 18 130/60 99
04/26/25 08:34 04/26/25 08:34 04/26/25 08:34 04/26/25 08:34 04/26/25 08:34
I&O
04/25/25 04/26/25 04/27/25
06:59 06:59 06:59
Intake Total 200 / 200
Balance 200 / 200
[2025-04-26 09:31] LABS: Hematocrit 38.7 % (37.0-47.0); Hemoglobin 12.7 g/dL (12.0-16.0); Mean Corp Hgb Conc. 32.8 g/dL (33.0-37.0); Mean Corpuscular Volume 92.8 fL (81.0-99.0); Platelet Count 211 10^3/uL (130-400); Red Cell Dist. Width 13.1 % (11.5-14.5)
[2025-04-26 09:52] LABS: Blood Urea Nitrogen 11 mg/dl (7-17); Calcium 9.2 mg/dl (8.4-10.2); Carbon Dioxide 28 mmol/L (22-30); Chloride 108 mmol/L (98-107); Estimated Creatinine Clearance 81 ml/min; Glucose 85 mg/dl (70-99); Potassium 3.6 mmol/L (3.5-5.1); Sodium 141 mmol/L (135-145); eGFR > 60.00
[2025-04-26] MEDS: BENTYL 20 MG PO (11:52)
[2025-04-26] MEDS: ROXICODONE 10 MG PO (14:02)
[2025-04-26 14:16] LABS: Hematocrit 34.3 % (37.0-47.0); Hemoglobin 11.3 g/dL (12.0-16.0)
[2025-04-26 14:41] LABS: INR 1.08; PT 14.3 Sec (11.4-14.6)
--- NOTE | 2025-04-26 15:31 | CM ---
Chart reviewed. Met with pt and at bedside. OBS form signed, placed in chart, copy to patient. Pt c/o pain. IA completed with assist from spouse. Megan with spouse in 2 story home; pt lives on the 1st floor but is able to navigate step
when she is not having a flare of GI disease. There are 5 steps at entrance to home with rails. Confirmed PCP, Rx,insurance and drug coverage. No insecurities identified. No hx VN, HC, or SNF. DME: [employer] grab [employer] in [facility].
Will follow for discharge needs.
Plan: home without needs
PCP: Kam Pizarro
Rx: [facility]
[2025-04-26] MEDS: AMBIEN 10 MG PO (21:37)
[2025-04-26 21:54] LABS: Hematocrit 33.1 % (37.0-47.0); Hemoglobin 11.3 g/dL (12.0-16.0)
[2025-04-27 03:27] VITALS: BP 104/58; BP 105/58; BP 105/60; PULSE 79; PULSE 82
[2025-04-27 06:00] VITALS: BMI 32.6
[2025-04-27 07:00] VITALS: BP 119/64
[2025-04-27] MEDS: SYNTHROID 125 MCG PO (08:13)
[2025-04-27] MEDS: LR IV (08:15)
[2025-04-27 08:33] VITALS: BP 113/62; BP 114/64; BP 119/64; PULSE 67; PULSE 68; PULSE 71
[2025-04-27 08:46] LABS: Hematocrit 34.8 % (37.0-47.0); Hemoglobin 11.8 g/dL (12.0-16.0); Mean Corp Hgb Conc. 33.9 g/dL (33.0-37.0); Mean Corpuscular Volume 91.1 fL (81.0-99.0); Red Cell Dist. Width 12.8 % (11.5-14.5)
[2025-04-27] MEDS: PROTONIX IV 40 MG IV (08:54)
[2025-04-27] MEDS: NSS (PRESERVATIVE FREE) 10 ML IV (08:54)
[2025-04-27] MEDS: REFRESH CELLUVISC GEL 1 DROPS BOTH EYES ×3 (08:55→22:27)
[2025-04-27] MEDS: NEURONTIN 600 MG PO ×4 (08:55→22:27)
[2025-04-27] MEDS: NON-FORMULARY ITEM 30 MG PO ×3 (08:55→22:27)
[2025-04-27] MEDS: BENTYL 10 MG PO (08:55)
[2025-04-27] MEDS: ELAVIL 50 MG PO ×2 (08:55→22:27)
[2025-04-27] MEDS: ROXICODONE 10 MG PO ×2 (08:58→15:59)
[2025-04-27 10:01] LABS: ALT (SGPT) 61 U/L (0-35); AST (SGOT) 35 U/L (14-36); Albumin 3.2 g/dl (3.5-5.0); Alkaline Phosphatase 152 U/L (38-126); Blood Urea Nitrogen 6 mg/dl (7-17); Calcium 8.8 mg/dl (8.4-10.2); Carbon Dioxide 28 mmol/L (22-30); Chloride 109 mmol/L (98-107); Estimated Creatinine Clearance 93 ml/min; Glucose 83 mg/dl (70-99); Potassium 3.6 mmol/L (3.5-5.1); Sodium 140 mmol/L (135-145); Total Protein 6.4 g/dl (6.3-8.2); eGFR > 60.00
[2025-04-27 10:03] VITALS: BP 105/68; BP 108/61; PULSE 75; O2SAT 97
--- NOTE | 2025-04-27 10:41 | W.PN.GI.CBS2 ---
Addendum entered and electronically signed by Bárbara Talamantes MD 04/27/25 19:02:
I saw and examined the patient.
The INSPECTOR SALVAGE's note was reviewed and I agree with the note.
Feeling better. Some abdominal bloating/mild pain. no bleeding . Tolerating clear liquid diet
Okay to advance to full liquid diet. If tolerating okay with low residua/low-fat l\\ diet
Continue monitor symptoms if continues to have diarrhea would recommend stool studies for infection
Dicyclomine as needed
will add simethicone
Follow-up with Dr. Puentes/Dr. Blanco on discharge
Original Note:
Today's Communication / Plan
-
Etiology of rectal bleeding related to local source-, hemorrhoids, diverticular, infectious source vs other
CTA neg for active bleeding
stool studies pending to be sent
hold flex for now
still with some abdominal and back pain possible muscular with moving during recent procedure
despite pain pt appears much improved from admission
on clear will trial full liquid diet
hbg stable 11.8
LFT with baseline chronic elevation
CT stable without pancreatitis with normal lipase on exam
cont pain control per hospitalist with chronic narcotic use
OP follow with Dr. Puentes at [place], Dr. Blanco and Dr. Kirkpatrick -- has also had pelvic floor PT completed and evaluation with Dr. Quigley
Assessment / Plan
-
Pt is a 59yo with hx primary biliary cirrhosis intolerant of Turner, fatty liver, lupus, Sjogren's, anemia, dry eyes, pelvic floor dysfunction, constipation, colon polyps, Levitor Ani-anal spasms with colorectal following, chronic pain with opioid
use fibromyalgia, GERD, hypothyroidism, depression, prior liver bx, appe, alisha, C section with onset of abdominal pain with syncope and rectal bleeding. Pt had recent ERCP and liver biopsy at [facility] on 04/23 and developed increased abdominal
bloating, distention and pain. On admission noted with stable hbg 11.7, LFT elevation with hx prior elevation with bili 0.5, AST 47, ALT 89, alk phos [address] A/p completed no active GI hemorrhage, no hepatic leisons moderate
intra and extrahepatic biliary dilatation, no filling defect, no panc lesion, changes of fibrosis lung bases. Colonoscopy in 2021, Follow up of adenomatous polyps, sigmoid tubular adenoma removed, nodular mucosa in the rectum, biopsies do not show
any active inflammation. Repeat in 5 years�
-rectal bleeding- small volume mucoid stool with abdominal pain and cramping
-syncope prior to admission
-recent ERCP and liver biopsy at [facility] 04/23
-concern for Primary biliary cirrhosis with follow with Dr. Puentes at [place]
-headache
-worsening of chronic fibromyalgia pain with chronic opioid use
-anal spasm-Levitor Ani follow with Dr. Kirkpatrick
other medical problems:
-hx pelvic floor dysfunction
-constipation
-colon polyp
-GERD
-hypothyroidism
-depression
-fatty liver
-lupus
-sjogrens
-anemia
-dry eyes
-anxiety/depression
-appe/alisha/
PLAN:
Etiology of rectal bleeding related to local source-, hemorrhoids, diverticular, infectious source vs other
CTA neg for active bleeding
stool studies pending to be sent
hold flex for now
still with some abdominal and back pain possible muscular with moving during recent procedure
despite pain pt appears much improved from admission
on clear will trial full liquid diet
hbg stable 11.8
LFT with baseline chronic elevation
CT stable without pancreatitis with normal lipase on exam
cont pain control per hospitalist with chronic narcotic use
OP follow with Dr. Puentes at [place], Dr. Blanco and Dr. Kirkpatrick -- has also had pelvic floor PT completed and evaluation with Dr. Quigley
Subjective
Subjective
Date of Service: April 27, 2025
9.8 yelllow blood tinged stools, no further stool overnight on clear diet, still with some abdominal and back pain
Objective
Data Reviewed
Laboratory Data:
Laboratory Results
04/27/25 07:39
04/27/25 07:39
Laboratory Results
PT 14.3 Sec (11.4-14.6) 04/26/25 14:07
INR 1.08 04/26/25 14:07
Total Bilirubin 1.0 mg/dl (0.2-1.3) 04/27/25 07:39
AST 35 U/L (14-36) 04/27/25 07:39
ALT 61 U/L (0-35) H 04/27/25 07:39
Alkaline Phosphatase 152 U/L (38-126) H 04/27/25 07:39
Lipase 40 U/L (23-300) 04/26/25 00:44
Vital Signs and I&O:
Vital Signs
Temp Pulse Resp BP Pulse Ox
98.1 F 71 12 119/64 99
04/27/25 07:00 04/27/25 07:00 04/27/25 07:00 04/27/25 07:00 04/27/25 07:00
I&O
04/26/25 04/27/25 04/28/25
06:59 06:59 06:59
Intake Total 200 / 200 1680 / 1680
Output Total 200 / 200
Balance 200 / 200 1480 / 1480
Physical Exam
Physical Exam
HEENT: Anicteric, Moist mucous membranes and Other (appears improved with less anxiety and less pain on exam )
Cardiology: Normal Sinus Rhythm
Pulmonary: Clear
GI: Soft, Non Distended and Tender (diffuse and points to mid back pain )
Extremities: No Edema
Neuro: Non Focal
--- NOTE | 2025-04-27 11:54 | W.PN.HOSP.TC ---
Today's Communication/Plan
-
GI reeval
Assessment / Plan
Assessment / Plan
Physical exam:
General: Acutely ill
HEENT: Normocephalic, Atraumatic and Moist Mucous Membranes
Respiratory: Clear to Auscultation; Negative Wheezes, Rales or Rhonchi
Cardiac: Regular Rhythm and S1/S2
GI: Soft, tender and Nondistended
Musculoskeletal: No Clubbing, No Cyanosis and No Edema
Neuro: Alert and oriented, no neurological deficit
Psych: Calm
A/P:
Abdominal Pain/ Rectal Bleeding
GI consult appreciated
Hemoglobin stable
GI advancing to full liquid diet today
Continue chronic pain medication at increased doses and cautious with constipation
Syncope
Vasovagal
Discontinue telemetry and orthostatic
Fibromyalgia
Chronic Pain Syndrome
Chronic Opioid Dependence
- Stable. Continue usual med regimen with minimal changes as above
Sjogren's Syndrome
Primary Biliary Cirrhosis
- Stable. Continue supportive care for Sjogren's / Sicca symptoms.
- Follow-up results of liver biopsy when available. (Dr. Puentes at [place])
Hypothyroidism
- Continue T4 supplementation.
Pelvic Floor Dysfunction
- Patient denies constipation but reports chronic pain with defecation.
- ? any benefit to bowel regimen.
- Follow-up with colorectal surgery as planned. Botox being considered.
DVT Prophylaxis: SCDs
Code Status: Full
Time spent 35 minutes
Anticipated Discharge: 24 - 48 hours
Subjective/Interval History
-
Date of Service: April 27, 2025
Still having some abdominal pain. No melena or bright blood per rectum. Afebrile
Objective Data
-
Labs:
Laboratory Results
04/27/25
07:39
WBC 7.4
Hgb 11.8 L
Hct 34.8 L
Plt Count
Sodium 140
Potassium 3.6
Chloride 109 H
Carbon Dioxide 28
BUN 6 L
Creatinine 0.6
Glucose 83
Calcium 8.8
Total Bilirubin 1.0
AST 35
ALT 61 H
Alkaline Phosphatase 152 H
Vital Signs:
Vital Signs
Temp Pulse Resp BP Pulse Ox
98.1 F 71 12 119/64 99
04/27/25 07:00 04/27/25 07:00 04/27/25 07:00 04/27/25 07:00 04/27/25 07:00
I&O
04/26/25 04/27/25 04/28/25
06:59 06:59 06:59
Intake Total 200 / 200 1680 / 1680
Output Total 200 / 200
Balance 200 / 200 1480 / 1480
--- NOTE | 2025-04-27 14:06 | CM ---
Met with pt at bedside. Pain management still active. Anticipated D/C 24-48 hrs. PT rec Home health. CM spoke with pt; she declined HC
Plan: Home no needs
[2025-04-27 19:50] VITALS: BP 112/53
[2025-04-27] MEDS: AMBIEN 10 MG PO (22:27)
[2025-04-27 23:30] VITALS: BP 97/54
[2025-04-27] MEDS: ROXICODONE 5 MG PO (23:59)
[2025-04-28] MEDS: MYLICON 80 MG PO (00:20)
[2025-04-28] MEDS: SYNTHROID 125 MCG PO (05:34)
[2025-04-28 06:00] VITALS: BMI 32.4
[2025-04-28 07:00] VITALS: BP 106/62
[2025-04-28 07:36] LABS: Hematocrit 33.7 % (37.0-47.0); Hemoglobin 11.4 g/dL (12.0-16.0); Mean Corp Hgb Conc. 33.8 g/dL (33.0-37.0); Mean Corpuscular Volume 91.1 fL (81.0-99.0); Red Cell Dist. Width 12.6 % (11.5-14.5)
[2025-04-28 08:40] LABS: Platelet Count 190 10^3/uL (130-400)
--- NOTE | 2025-04-28 09:06 | W.PN.HOSP.TC ---
Today's Communication/Plan
-
Advancing diet. GI reeval
Assessment / Plan
Assessment / Plan
Physical exam:
General: Acutely ill
HEENT: Normocephalic, Atraumatic and Moist Mucous Membranes
Respiratory: Clear to Auscultation; Negative Wheezes, Rales or Rhonchi
Cardiac: Regular Rhythm and S1/S2
GI: Soft, tender and Nondistended
Musculoskeletal: No Clubbing, No Cyanosis and No Edema
Neuro: Alert and oriented, no neurological deficit
Psych: Calm
A/P:
Abdominal Pain/ Rectal Bleeding
GI consult appreciated
Hemoglobin stable
GI advancing to low-fat diet today
Awaiting GI further recommendations today
Continue chronic pain medication and go back to home doses
Hemoglobin 11.4 today, stable
PT eval
Syncope
Vasovagal
Discontinue telemetry and orthostatic
Fibromyalgia
Chronic Pain Syndrome
Chronic Opioid Dependence
- Stable. Continue usual med regimen with minimal changes as above
Sjogren's Syndrome
Primary Biliary Cirrhosis
- Stable. Continue supportive care for Sjogren's / Sicca symptoms.
- Follow-up results of liver biopsy when available. (Dr. Puentes at [place])
Hypothyroidism
- Continue T4 supplementation.
Pelvic Floor Dysfunction
- Patient denies constipation but reports chronic pain with defecation.
- ? any benefit to bowel regimen.
- Follow-up with colorectal surgery as planned. Botox being considered.
DVT Prophylaxis: SCDs
Code Status: Full
Time spent 35 minutes
Anticipated Discharge: 24 - 48 hours
Subjective/Interval History
-
Date of Service: April 28, 2025
Patient reports some bloody bowel movement last evening. Abdominal pain about the same. Afebrile
Objective Data
-
Labs:
Laboratory Results
04/28/25
06:57
WBC 7.2
Hgb 11.4 L
Hct 33.7 L
Plt Count 190
Vital Signs:
Vital Signs
Temp Pulse Resp BP Pulse Ox
98 F 65 12 106/62 95
04/28/25 07:00 04/28/25 07:00 04/28/25 07:00 04/28/25 07:00 04/28/25 07:00
I&O
04/27/25 04/28/25 04/29/25
06:59 06:59 06:59
Intake Total 1680 / 1680 120 / 120
Output Total 200 / 200 500 / 500
Balance 1480 / 1480 -380 / -380
[2025-04-28] MEDS: ROXICODONE 5 MG PO ×2 (09:15→18:29)
[2025-04-28] MEDS: NEURONTIN 600 MG PO ×4 (09:22→21:13)
[2025-04-28] MEDS: NON-FORMULARY ITEM 30 MG PO ×3 (09:22→21:13)
[2025-04-28] MEDS: REFRESH CELLUVISC GEL 1 DROPS BOTH EYES ×3 (09:22→21:13)
[2025-04-28] MEDS: ELAVIL 50 MG PO ×2 (09:23→21:00)
[2025-04-28] MEDS: NSS (PRESERVATIVE FREE) 10 ML IV (09:24)
[2025-04-28] MEDS: PROTONIX IV 40 MG IV (09:24)
[2025-04-28] MEDS: ROXICODONE 10 MG PO (10:49)
--- NOTE | 2025-04-28 13:08 | CM ---
Reviewed chart. Met with pt at bedside. Reported having significant abd/rectal pain and blood in her stool.
Plan: Home with no needs
[2025-04-28 15:00] VITALS: BP 119/63
--- NOTE | 2025-04-28 19:20 | W.PN.GI.CBS2 ---
Today's Communication / Plan
-
continue current mx
Assessment / Plan
-
Pt is a 59yo with hx primary biliary cirrhosis intolerant of Turner, fatty liver, lupus, Sjogren's, anemia, dry eyes, pelvic floor dysfunction, constipation, colon polyps, Levitor Ani-anal spasms with colorectal following, chronic pain with opioid
use fibromyalgia, GERD, hypothyroidism, depression, prior liver bx, appe, alisha, C section with onset of abdominal pain with syncope and rectal bleeding. Pt had recent ERCP and liver biopsy at [place] on 04/23 and developed increased abdominal
bloating, distention and pain. On admission noted with stable hbg 11.7, LFT elevation with hx prior elevation with bili 0.5, AST 47, ALT 89, alk phos [address] A/p completed no active GI hemorrhage, no hepatic leisons moderate
intra and extrahepatic biliary dilatation, no filling defect, no panc lesion, changes of fibrosis lung bases. Colonoscopy in 2021, Follow up of adenomatous polyps, sigmoid tubular adenoma removed, nodular mucosa in the rectum, biopsies do not show
any active inflammation. Repeat in 5 years�
-rectal bleeding- small volume mucoid stool with abdominal pain and cramping
-syncope prior to admission
-recent ERCP and liver biopsy at [place] 04/23
-concern for Primary biliary cirrhosis with follow with Dr. Puentes at [place]
-headache
-worsening of chronic fibromyalgia pain with chronic opioid use
-anal spasm-Levitor Ani follow with Dr. Kirkpatrick
other medical problems:
-hx pelvic floor dysfunction
-constipation
-colon polyp
-GERD
-hypothyroidism
-depression
-fatty liver
-lupus
-sjogrens
-anemia
-dry eyes
-anxiety/depression
-appe/alisha/
PLAN:
tolerating diet.most of her symptoms are chronic . Likely multifactorial. Hb stable.No acute GI interventions at this point
Dicyclomine as needed
will add simethicone for bloating
cont pain control per hospitalist with chronic narcotic use
OP follow with Dr. Puentes at [place], Dr. Blanco and Dr. Kirkpatrick -- has also had pelvic floor PT completed and evaluation with Dr. Quigley
will s/o. call us back if any ?
Total Time Spent with Patient (in minutes): 35
Subjective
Subjective
Date of Service: April 28, 2025
feeling better. tolerating diet. continues to have abdominal pain
Objective
Data Reviewed
Laboratory Data:
Laboratory Results
04/28/25 06:57
04/27/25 07:39
Laboratory Results
PT 14.3 Sec (11.4-14.6) 04/26/25 14:07
INR 1.08 04/26/25 14:07
Total Bilirubin 1.0 mg/dl (0.2-1.3) 04/27/25 07:39
AST 35 U/L (14-36) 04/27/25 07:39
ALT 61 U/L (0-35) H 04/27/25 07:39
Alkaline Phosphatase 152 U/L (38-126) H 04/27/25 07:39
Lipase 40 U/L (23-300) 04/26/25 00:44
Vital Signs and I&O:
Vital Signs
Temp Pulse Resp BP Pulse Ox
98.6 F 93 16 119/63 97
04/28/25 15:00 04/28/25 15:00 04/28/25 15:00 04/28/25 15:00 04/28/25 15:00
I&O
04/27/25 04/28/25 04/29/25
06:59 06:59 06:59
Intake Total 1680 / 1680 120 / 120 420 / 420
Output Total 200 / 200 500 / 500
Balance 1480 / 1480 -380 / -380 420 / 420
Physical Exam
Physical Exam
GI: Soft, Non Distended and Tender (non specific general tenderness )
[2025-04-28] MEDS: AMBIEN 10 MG PO (21:18)
[2025-04-28 23:39] VITALS: BP 107/57
[2025-04-29 06:00] VITALS: BMI 32.1
[2025-04-29] MEDS: SYNTHROID 125 MCG PO (06:06)
[2025-04-29 07:00] VITALS: BP 89/55
[2025-04-29 07:05] VITALS: BP 84/51
[2025-04-29] MEDS: NEURONTIN 600 MG PO ×2 (07:53→13:11)
[2025-04-29] MEDS: ELAVIL 50 MG PO (07:54)
[2025-04-29] MEDS: REFRESH CELLUVISC GEL 1 DROPS BOTH EYES (07:54)
[2025-04-29] MEDS: NSS (PRESERVATIVE FREE) 10 ML IV (07:54)
[2025-04-29] MEDS: PROTONIX IV 40 MG IV (07:55)
[2025-04-29] MEDS: NON-FORMULARY ITEM 30 MG PO (07:55)
[2025-04-29 08:13] LABS: Hematocrit 33.8 % (37.0-47.0); Hemoglobin 11.2 g/dL (12.0-16.0)
[2025-04-29] MEDS: ROXICODONE 5 MG PO (08:16)
[2025-04-29 09:55] VITALS: BP 84/51; BP 89/55
[2025-04-29 10:07] VITALS: BP 91/62
--- NOTE | 2025-04-29 10:36 | W.PN.HOSP.TC ---
Today's Communication/Plan
-
Discharge planning today
Assessment / Plan
Assessment / Plan
Physical exam:
General: Well Developed, Well Nourished and No Apparent Distress
HEENT: Normocephalic, Atraumatic and Moist Mucous Membranes
Respiratory: Clear to Auscultation; Negative Wheezes, Rales or Rhonchi
Cardiac: Regular Rhythm and S1/S2
GI: Soft, Nontender and Nondistended
Musculoskeletal: No Clubbing, No Cyanosis and No Edema
Neuro: Awake, Alert and Oriented
Psych: Calm
A/P:
Abdominal Pain/ Rectal Bleeding
GI consult appreciated
Hemoglobin stable
GI advanced to low-fat diet
GI recommended current treatment and outpatient follow-up
Continue chronic pain medication and go back to home doses
Hemoglobin 11.2 today, stable
PT eval
Syncope
Vasovagal
Discontinue telemetry and orthostatic
Fibromyalgia
Chronic Pain Syndrome
Chronic Opioid Dependence
- Stable. Continue usual med regimen with minimal changes as above
Sjogren's Syndrome
Primary Biliary Cirrhosis
- Stable. Continue supportive care for Sjogren's / Sicca symptoms.
- Follow-up results of liver biopsy when available. (Dr. Puentes at [place])
Hypothyroidism
- Continue T4 supplementation.
Pelvic Floor Dysfunction
- Patient denies constipation but reports chronic pain with defecation.
- ? any benefit to bowel regimen.
- Follow-up with colorectal surgery as planned. Botox being considered.
DVT Prophylaxis: SCDs
Code Status: Full
Anticipated Discharge: Today
Subjective/Interval History
-
Date of Service: April 29, 2025
Patient feels well today. Still abdominal rectal discomfort but not as much as before.
Objective Data
-
Labs:
Laboratory Results
04/29/25
07:09
Hgb 11.2 L
Hct 33.8 L
Vital Signs:
Vital Signs
Temp Pulse Resp BP Pulse Ox
97.8 F 66 12 91/62 99
04/29/25 07:00 04/29/25 07:00 04/29/25 07:00 04/29/25 10:07 04/29/25 07:00
I&O
04/28/25 04/29/25 04/30/25
06:59 06:59 06:59
Intake Total 120 / 120 420 / 420
Output Total 500 / 500
Balance -380 / -380 420 / 420
--- NOTE | 2025-04-29 10:41 | W.DCSUMMARY ---
Discharge Summary
Discharge Data
Date of Admission: 04/26/25
Date of Discharge: 04/29/25
Total time spent discharging patient (in min): 36
-
Pending Results: No
Hospital Course
Patient is 59 years old female with history of PBC, Sjogren, pelvic floor dysfunction, levator and eye spasm, fibromyalgia, chronic pain on chronic opiates, came into the hospital abdominal pain and some rectal bleeding. Patient had underwent EUS
at [place] just a few days prior to admission and not showing any pathology. GI was consulted. Patient was monitored and her hemoglobin had remained stable. Her diet was advanced and she tolerated well. Her pain improved although she does have
residual chronic pain. GI feels that at this point she can be discharged and she can follow-up as outpatient for further evaluation. No other events were noticed. She will be discharged in relatively stable condition today.
Discharge duration: 36 minutes
Discharge Plan
-
Patient Disposition: Home with Home Care
Discharge Diagnosis/Procedures: Rectal bleeding. Abdominal pain. Chronic pelvic floor dysfunction. Syncope. History of fibromyalgia.
Condition: Fair
Diet: Low Fat
Activity: As tolerated
Blood Work: Please PCP to order CBC, BMP within 1 week
Referrals:
Bárbara Talamantes MD [Active, Gastroenterology] - in one to two weeks
Kam Pizarro MD [Family Provider] - in less than 1 week
Prescriptions:
New
simethicone 80 mg Tablet,Chewable
80 mg PO TIDPRN PRN (Reason: abdominal bloating) Qty: 20 0RF
dicyclomine 10 mg Capsule
10 mg PO QIDPRN PRN (Reason: Abdominal pain) 7 Days Qty: 14 0RF
Continued
gabapentin [Neurontin] 600 MG tablet
600 mg PO QID
zolpidem 10 MG tablet
10 mg PO HS
levothyroxine 125 mcg tablet
125 mcg PO DAILY
cevimeline 30 mg capsule
30 mg PO TID
carboxymethylcellulose sodium 1 % Drops, Liquid Gel
1 drp BOTH EYES TID
amitriptyline 50 MG tablet
50 mg PO BID
oxycodone 5 mg Tablet
5 mg PO TID PRN (Reason: pain)
Discharge Orders:
Discharge Patient (As Directed); Ordered 04/29/25
Ordered By: Sandoval Vee
Discharge Date and Time
Discharge Date/Time: 04/29/25 14:16
Print Language: TURKISH
--- NOTE | 2025-04-29 11:37 | CM ---
MD entered order for discharge.
Spoke with patient in room she said she was ready for discharge.
Offered VN she declined need.
Armando will drive her home.
PLAN Home no needs
[2025-04-29 14:12] VITALS: BP 101/55
== END 2025-04-29 14:16 | disposition home or self-care (01) ==
LOC: 4 EAST ACU 03:24
PROVIDERS: Nurse Practitioner Adult Health; ADMITTING PHYSICIAN Hospitalist; ATTENDING PHYSICIAN Hospitalist; CONSULT PHYSICIAN Internal Medicine; EMERGENCY PHYSICIAN Emergency Medicine; FAMILY PHYSICIAN Hospitalist
DX: K62.5 Hemorrhage of anus and rectum (principal); R55 Syncope and collapse; R10.9 Unspecified abdominal pain; M99.05 Segmental and somatic dysfunction of pelvic region; E03.9 Hypothyroidism, unspecified; M79.7 Fibromyalgia; M35.00 Sjogren syndrome, unspecified; K74.3 Primary biliary cirrhosis; K21.9 Gastro-esophageal reflux disease without esophagitis; F32.A Depression, unspecified; K76.0 Fatty (change of) liver, not elsewhere classified; D64.9 Anemia, unspecified; F11.20 Opioid dependence, uncomplicated; F41.9 Anxiety disorder, unspecified; G89.4 Chronic pain syndrome; M32.9 Systemic lupus erythematosus, unspecified; Z79.899 Other long term (current) drug therapy; Z87.891 Personal history of nicotine dependence
CPT/HCPCS: 74174; 80048; 80053; 83690; 84484; 85014; 85018; 85025; 85027; 85610; 86850; 86900; 86901; 93005; 96361; 96374; 97162; 99285; G0378; Q9967